=== PATIENT | male | born 1970 | race African-American/Black ===

== ENCOUNTER 2021-06-14 11:53 | Inpatient (IN) | payer OTHER ==
[2021-06-14] MEDS ORDERED: INSULIN (NOVOLOG) ASPART 100 UNITS/ML 10ML VIAL ONE (13:25)
[2021-06-14] MEDS ORDERED: ACETAMINOPHEN 325 MG TABLET (FP) PO PRN ×2 (13:54)
[2021-06-14] MEDS ORDERED: MAGNESIUM CITRATE 300 ML BOTTLE PO PRN (13:54)
[2021-06-14] MEDS ORDERED: BISMUTH SUBSALICYLATE 262 MG/15 ML BTL PO PRN (13:54)
[2021-06-14] MEDS ORDERED: DICYCLOMINE HCL 10 MG CAPSULE PO PRN (13:54)
[2021-06-14] MEDS ORDERED: METHOCARBAMOL 500 MG TABLET PO PRN (13:54)
[2021-06-14] MEDS ORDERED: LOPERAMIDE HCL 2 MG CAPSULE PO PRN (13:54)
[2021-06-14] MEDS ORDERED: BENZOCAINE/MENTHOL (CHLORASEPTIC ) LOZENGE MM PRN (13:54)
[2021-06-14] MEDS ORDERED: MAGNESIUM HYDROX 2400MG/30ML ORAL SUSPENSION 30 ML CUP PO PRN (13:54)
[2021-06-14] MEDS ORDERED: ONDANSETRON *ODT* 4 MG TABLET SL PRN (13:54)
[2021-06-14] MEDS ORDERED: NICOTINE 10 MG CARTRIDGE (INHALER) IH PRN (13:54)
[2021-06-14] MEDS ORDERED: MAG HYDROX/AL HYDROX/SIMETH 30 ML UNIT-DOSE CUP PO PRN (13:54)
[2021-06-14] MEDS ORDERED: chlordiazePOXIDE HCL 25 MG CAPSULE PO PRN (13:54)
[2021-06-14] MEDS ORDERED: INSULIN (NOVOLOG) ASPART 100 UNITS/ML 10ML VIAL SQ ONE (13:59)
[2021-06-14] MEDS ORDERED: HYDROCHLOROTHIAZIDE 12.5 MG CAPSULE (FP) ONE (15:23)
[2021-06-14] MEDS ORDERED: chlordiazePOXIDE HCL 25 MG CAPSULE ONE (15:23)
[2021-06-14] MEDS ORDERED: hydrOXYzine PAMOATE 25 MG CAPSULE (FP) PO ONE (15:23)
[2021-06-14] MEDS: hydrOXYzine PAMOATE 25 MG CAPSULE (FP) PO SCH ×3 (15:28→23:01)
[2021-06-14] MEDS ORDERED: glipiZIDE-XL 5 MG TAB.ER.24 PO SCH (15:33)
[2021-06-14] MEDS: IBUPROFEN 400 MG TABLET (FP) PO PRN (15:34)
[2021-06-14] MEDS ORDERED: IBUPROFEN 400 MG TABLET (FP) PO ONE (15:35)
[2021-06-14] MEDS ORDERED: HYDROCHLOROTHIAZIDE 12.5 MG CAPSULE (FP) PO ONE ×2 (15:50→15:52)
[2021-06-14] MEDS ORDERED: glipiZIDE-XL 5 MG TAB.ER.24 PO ONE (15:51)
[2021-06-14] MEDS ORDERED: INSULIN SLIDING SCALE (NOVOLOG) 1 VIAL SQ SCH (16:30)
[2021-06-14 17:29] LABS: CHLORIDE 97 mmol/L (98-107); SODIUM 133 mmol/L (136-145)
[2021-06-14 17:36] LABS: ALBUMIN 3.1 g/dl (3.4-5.0); ANION GAP 12 MMOL/L (8-16); CO2 24 mmol/L (21-32)
[2021-06-14 17:39] LABS: CREATININE 1.2 mg/dL (0.55-1.3)
[2021-06-14 17:41] LABS: BILIRUBIN,TOTAL 1.2 mg/dL (0.2-1)
[2021-06-14 17:42] LABS: ALK PHOS 121 U/L (45-117)
[2021-06-14 17:48] LABS: BLOOD UREA NITROGEN 12.7 mg/dL (7-18); GLUCOSE,RANDOM 541 mg/dL (74-106)
[2021-06-14] MEDS: NICOTINE 21 MG/24 HOURS TOPICAL PATCH TD SCH (18:14)
[2021-06-14] MEDS: PRENATAL VITAMINS W/ FOLIC ACID TABLET (FP) PO SCH (18:14)
[2021-06-14] MEDS: metFORMIN HCL 500 MG TABLET (FP) PO SCH (18:15)
[2021-06-14] MEDS: chlordiazePOXIDE HCL 25 MG CAPSULE PO SCH ×2 (18:21→22:40)
[2021-06-14 18:46] LABS: HEMATOCRIT 40.3 % (35.4-49); HEMOGLOBIN 13.2 GM/dL (11.7-16.9); MCH 31.9 pg (25.7-33.7); MCHC 32.7 g/dl (32.0-35.9); MEAN CELL VOLUME 97.5 fl (80-96); MEAN PLT VOLUME 10.1 fl (7.5-11.1); PLATELET COUNT 193 10^3/uL (134-434); RBC 4.14 M/mm3 (4.00-5.60); RDW 14.3 % (11.9-15.9); WHITE BLOOD COUNT 4.7 K/mm3 (4.0-10.0)
[2021-06-14] MEDS: ATORVASTATIN CA 20 MG TABLET (FP) PO SCH (22:35)
[2021-06-14] MEDS: THIAMINE HCL 100 MG TABLET (FP) PO SCH (22:35)
[2021-06-14] MEDS: MELATONIN 5 MG TABLETS PO SCH (22:35)
[2021-06-14] MEDS: INSULIN SLIDING SCALE (NOVOLOG) 1 VIAL SQ SCH (22:36)
[2021-06-15] MEDS: hydrOXYzine PAMOATE 25 MG CAPSULE (FP) PO SCH ×5 (06:45→22:05)
[2021-06-15] MEDS: chlordiazePOXIDE HCL 25 MG CAPSULE PO SCH ×4 (06:45→22:06)
[2021-06-15] MEDS: INSULIN SLIDING SCALE (NOVOLOG) 1 VIAL SQ SCH ×4 (06:48→22:07)
[2021-06-15] MEDS: glipiZIDE-XL 5 MG TAB.ER.24 PO SCH (06:49)
[2021-06-15] MEDS ORDERED: glipiZIDE-XL 5 MG TAB.ER.24 PO SCH (07:00)
[2021-06-15] MEDS ORDERED: LOSARTAN POTASSIUM 50 MG TABLET PO SCH (10:00)
[2021-06-15] MEDS ORDERED: CYCLOBENZAPRINE HCL 10 MG TABLET (FP) PO SCH (10:00)
[2021-06-15] MEDS: LOSARTAN POTASSIUM 50 MG TABLET PO SCH (11:03)
[2021-06-15] MEDS: FAMOTIDINE 20 MG TABLET PO SCH (11:03)
[2021-06-15] MEDS: PRENATAL VITAMINS W/ FOLIC ACID TABLET (FP) PO SCH (11:04)
[2021-06-15] MEDS: HYDROCHLOROTHIAZIDE 12.5 MG CAPSULE (FP) PO SCH (11:04)
[2021-06-15] MEDS: ASPIRIN COATED 81 MG TABLET.EC PO SCH (11:04)
[2021-06-15] MEDS: CYCLOBENZAPRINE HCL 10 MG TABLET (FP) PO SCH (11:04)
[2021-06-15] MEDS: NICOTINE 21 MG/24 HOURS TOPICAL PATCH TD SCH (11:07)
[2021-06-15 14:23] VITALS: BMI 26.9
[2021-06-15] MEDS: metFORMIN HCL 500 MG TABLET (FP) PO SCH (17:55)
[2021-06-15] MEDS: THIAMINE HCL 100 MG TABLET (FP) PO SCH (22:05)
[2021-06-15] MEDS: MELATONIN 5 MG TABLETS PO SCH (22:05)
[2021-06-15] MEDS: ATORVASTATIN CA 20 MG TABLET (FP) PO SCH (22:05)
[2021-06-16] MEDS: hydrOXYzine PAMOATE 25 MG CAPSULE (FP) PO SCH ×5 (06:49→22:12)
[2021-06-16] MEDS: chlordiazePOXIDE HCL 25 MG CAPSULE PO SCH ×4 (06:49→22:13)
[2021-06-16] MEDS: glipiZIDE-XL 5 MG TAB.ER.24 PO SCH (06:50)
[2021-06-16] MEDS: INSULIN SLIDING SCALE (NOVOLOG) 1 VIAL SQ SCH ×5 (08:21→22:14)
[2021-06-16 10:07] LABS: SARS-CoV-2 NAA Not Detected (Not Detected)
[2021-06-16] MEDS: CYCLOBENZAPRINE HCL 10 MG TABLET (FP) PO SCH (11:08)
[2021-06-16] MEDS: ASPIRIN COATED 81 MG TABLET.EC PO SCH (11:08)
[2021-06-16] MEDS: HYDROCHLOROTHIAZIDE 12.5 MG CAPSULE (FP) PO SCH (11:08)
[2021-06-16] MEDS: LOSARTAN POTASSIUM 50 MG TABLET PO SCH (11:08)
[2021-06-16] MEDS: FAMOTIDINE 20 MG TABLET PO SCH (11:09)
[2021-06-16] MEDS: PRENATAL VITAMINS W/ FOLIC ACID TABLET (FP) PO SCH (11:10)
[2021-06-16] MEDS: NICOTINE 21 MG/24 HOURS TOPICAL PATCH TD SCH (11:11)
[2021-06-16] MEDS: metFORMIN HCL 500 MG TABLET (FP) PO SCH (18:54)
[2021-06-16] MEDS: THIAMINE HCL 100 MG TABLET (FP) PO SCH (22:12)
[2021-06-16] MEDS: MELATONIN 5 MG TABLETS PO SCH (22:12)
[2021-06-16] MEDS: ATORVASTATIN CA 20 MG TABLET (FP) PO SCH (22:12)
[2021-06-17] MEDS ORDERED: chlordiazePOXIDE HCL 10 MG CAPSULE PO PRN
[2021-06-17] MEDS: INSULIN SLIDING SCALE (NOVOLOG) 1 VIAL SQ SCH ×4 (07:11→23:07)
[2021-06-17] MEDS: glipiZIDE-XL 5 MG TAB.ER.24 PO SCH (07:12)
[2021-06-17] MEDS: chlordiazePOXIDE HCL 10 MG CAPSULE PO SCH ×4 (07:16→22:02)
[2021-06-17] MEDS: hydrOXYzine PAMOATE 25 MG CAPSULE (FP) PO SCH ×5 (07:17→22:02)
[2021-06-17] MEDS ORDERED: INSULIN SLIDING SCALE (NOVOLOG) 1 VIAL SQ ONE (07:26)
[2021-06-17] MEDS: PRENATAL VITAMINS W/ FOLIC ACID TABLET (FP) PO SCH (10:15)
[2021-06-17] MEDS: LOSARTAN POTASSIUM 50 MG TABLET PO SCH (10:15)
[2021-06-17] MEDS: ASPIRIN COATED 81 MG TABLET.EC PO SCH (10:16)
[2021-06-17] MEDS: CYCLOBENZAPRINE HCL 10 MG TABLET (FP) PO SCH (10:16)
[2021-06-17] MEDS: HYDROCHLOROTHIAZIDE 12.5 MG CAPSULE (FP) PO SCH (10:16)
[2021-06-17] MEDS: FAMOTIDINE 20 MG TABLET PO SCH (10:16)
[2021-06-17] MEDS: NICOTINE 21 MG/24 HOURS TOPICAL PATCH TD SCH (10:16)
[2021-06-17] MEDS ORDERED: glipiZIDE-XL 5 MG TAB.ER.24 PO SCH (17:22)
[2021-06-17] MEDS: metFORMIN HCL 500 MG TABLET (FP) PO SCH (17:52)
[2021-06-17] MEDS: THIAMINE HCL 100 MG TABLET (FP) PO SCH (22:02)
[2021-06-17] MEDS: ATORVASTATIN CA 20 MG TABLET (FP) PO SCH (22:02)
[2021-06-17] MEDS: MELATONIN 5 MG TABLETS PO SCH (22:02)
[2021-06-17] MEDS: IBUPROFEN 400 MG TABLET (FP) PO PRN (22:05)
[2021-06-18] MEDS ORDERED: chlordiazePOXIDE HCL 10 MG CAPSULE PO SCH (05:00)
[2021-06-18] MEDS: hydrOXYzine PAMOATE 25 MG CAPSULE (FP) PO SCH ×4 (06:40→13:38)
[2021-06-18] MEDS: INSULIN SLIDING SCALE (NOVOLOG) 1 VIAL SQ SCH ×2 (06:57→11:36)
[2021-06-18] MEDS: HYDROCHLOROTHIAZIDE 12.5 MG CAPSULE (FP) PO SCH (10:18)
[2021-06-18] MEDS: CYCLOBENZAPRINE HCL 10 MG TABLET (FP) PO SCH (10:18)
[2021-06-18] MEDS: FAMOTIDINE 20 MG TABLET PO SCH (10:18)
[2021-06-18] MEDS: LOSARTAN POTASSIUM 50 MG TABLET PO SCH (10:18)
[2021-06-18] MEDS: ASPIRIN COATED 81 MG TABLET.EC PO SCH (10:18)
[2021-06-18] MEDS: NICOTINE 21 MG/24 HOURS TOPICAL PATCH TD SCH (10:19)
[2021-06-18] MEDS: PRENATAL VITAMINS W/ FOLIC ACID TABLET (FP) PO SCH (10:20)
[2021-06-18 12:58] VITALS: PULSE 104
[2021-06-18 13:35] VITALS: BP 178/111; TEMP 96.8
[2021-06-19] MEDS ORDERED: chlordiazePOXIDE HCL 10 MG CAPSULE PO ONE (05:00)
== END 2021-06-18 13:05 | disposition home or self-care (01) | DRG 773 ==
LOC: YASAS 11:53 → Y3N 15:20
PROVIDERS: ADMIT Allergy & Immunology; ATTEND Allergy & Immunology
PROC: HZ2ZZZZ Detoxification Services for Substance Abuse Treatment (ICD-10-PCS; principal; 2021-06-14)
DX: F10.230 Alcohol dependence with withdrawal, uncomplicated (principal); F11.20 Opioid dependence, uncomplicated; F14.20 Cocaine dependence, uncomplicated; F12.20 Cannabis dependence, uncomplicated; F17.210 Nicotine dependence, cigarettes, uncomplicated; F19.24 Other psychoactive substance dependence with psychoactive substance-induced mood disorder; F32.A Depression, unspecified; E11.65 Type 2 diabetes mellitus with hyperglycemia; Z79.84 Long term (current) use of oral hypoglycemic drugs; I10 Essential (primary) hypertension; Z91.011 Allergy to milk products
CPT/HCPCS: 36415; 80053; 82962; 85027; 86780; 87811; 93005; 93010; C9803-CS; U0003; U0005